=== PATIENT | female | born 1990 | race Caucasian/White ===

== ENCOUNTER 2019-01-09 10:58 | Emergency (ER) | payer BC ==
[2019-01-09 11:29] VITALS: BP 116/77
--- NOTE | 2019-01-09 11:41 | UC ---
Eye Complaint HPI - HPI Summary HPI Summary: Thursday, pt noted some itching in her L eye and redness. The R eye became red as well. this am both eyes with crusting. was exposed to pink eye. no contact use. - History of Current Complaint Chief Complaint: UCEye Stated Complaint: EYE COMPLAINT Time Seen by Provider: 01/09/19 11:33 Hx Obtained From: Patient Hx Last Menstrual Period: last week Onset/Duration: Gradual Onset Timing: Constant Pain Intensity: 0 Aggravating Factor(s): Nothing Alleviating Factor(s): Nothing Associated Signs And Symptoms: Negative: Photophobia, Vision Impairment Bilateral, Fever, Swelling - Allergies/Home Medications Allergies/Adverse Reactions: Allergies Allergy/AdvReac Type Severity Reaction Status Date / Time No Known Allergies Allergy Verified 01/09/19 11:22 Home Medications: Home Medications Citalopram TAB* [CeleXA TAB*] 10 mg PO DAILY 01/09/19 [History Confirmed ] Desloratidine (NF) [Clarinex (NF)] 5 mg PO DAILY 01/09/19 [History Confirmed ] PMH/Surg Hx/FS Hx/Imm Hx - Additional Past Medical History Additional PMH: allergies Psychological History: Depression - Surgical History Surgical History: Yes Surgery Procedure, Year, and Place: uterine polyp removed 2013--benign - Family History Known Family History: Positive: Cardiac Disease, Hypertension, Diabetes - Social History Occupation: Employed Full-time Alcohol Use: Occasionally Substance Use Type: None Smoking Status (MU): Light Every Day Tobacco Smoker Type: Cigarettes Amount Used/How Often: 1 pack weekly When Did the Patient Quit Smoking/Using Tobacco: 1 year ago - Immunization History Most Recent Influenza Vaccination: 2016 Vaccination Up to Date: Yes Review of Systems All Other Systems Reviewed And Are Negative: Yes Constitutional: Negative: Fever Skin: Negative: Rash Eyes: Positive: Drainage, Eye Redness. Negative: Blurred Vision, Diplopia, Photophobia Physical Exam Triage Information Reviewed: Yes Appearance: Well-Appearing Vital Signs: Initial Vital Signs Temp 97.9 F 01/09/19 11:24 Pulse 84 01/09/19 11:24 Resp 15 01/09/19 11:24 BP 116/77 01/09/19 11:24 Pulse Ox 99 01/09/19 11:24 Vital Signs Reviewed: Yes Eyes: Positive: Other: - No auricular adenopathy or periorbtal edema/rash. Conjunctiva injected x2 and crusting noted. PERRL, EOMI. AC's clear. ENT: Positive: Pharynx normal, TMs normal. Negative: Nasal congestion, Nasal drainage Neck: Positive: Supple, Nontender, No Lymphadenopathy Respiratory: Positive: Lungs clear Cardiovascular: Positive: RRR Abdomen Description: Positive: Nontender Musculoskeletal: Positive: ROM Intact Neurological: Positive: Alert Psychological: Positive: Age Appropriate Behavior Skin Exam: Normal Eye Complaint Course/Dx - Differential Dx/Diagnosis Provider Diagnosis: Conjunctivitis Discharge - Sign-Out/Discharge Documenting (check all that apply): Patient Departure All imaging exams completed and their final reports reviewed: No Studies - Discharge Plan Condition: Stable Disposition: HOME Prescriptions: Polymyx/Trimethoprim OPTH* [Polytrim OPHTH*] 1 drop BOTH EYES Q3H 7 Days #1 btl Patient Education Materials: Conjunctivitis (ED) Referrals: Tabatha Henderson NP [Primary Care Provider] - Additional Instructions: FOLLOW UP WITH PRIMARY CARE IF NOT BETTER IN 5-7 DAYS OR SOONER IF WORSE. - Billing Disposition and Condition Condition: STABLE Disposition: Home - Attestation Statements Provider Attestation: I was available for consult. This patient was seen by the [facility]. The patient was not presented to , seen by or examined by md -Dmitriy Morales MD
== END 2019-01-09 11:54 | disposition home or self-care (01) ==
LOC: UCCORT 10:58
DX: H10.9 Unspecified conjunctivitis (principal); F32.9 Major depressive disorder, single episode, unspecified; F17.210 Nicotine dependence, cigarettes, uncomplicated
CPT/HCPCS: 99212; G0463